=== PATIENT | male | born 1950 | race Caucasian/White ===

== ENCOUNTER → 2017-05-12 | Outpatient (CLI) | payer MEDICARE, OTHER ==
[~2017-05-12] MED LIST: ATOR40TA70 PO; CIPR-225 PO; HYDR-3874 PO; HYDR-3876 PO; LOSA25TA21 PO; NITR-65 PO; NITR-68 PO; SULF1TAB35 PO; TAMS0.4C98 PO
--- NOTE | 2017-05-12 13:53 | Diagnostic Imaging Report ---
KUB. INDICATION: Left flank pain. Left ureteric stone. FINDINGS: There is a 9-mm stone in the left flank at L3 level probably within the proximal left ureter. The right flank demonstrates no definite calcifications. There are calcifications superiorly and medially however on the left side of the abdomen at T12 level. This could be vascular or related to gallbladder stones potentially. No pelvic calcifications to suggest a stone. IMPRESSION: 1. A 9-mm left abdominal calcification at L3 level is presumably proximal left ureteric stone. 2. Indeterminate upper medial right abdominal calcifications also seen. Dictated by: Dictated on workstation # [id number]
== END ==
LOC: RAD 12:03
PROVIDERS: ATTEND Urology
DX: N20.1 Calculus of ureter; R93.8 Abnormal findings on diagnostic imaging of other specified body structures
CPT/HCPCS: 74000

== ENCOUNTER 2017-05-13 05:40 | Outpatient (CLI) | payer MEDICARE, OTHER ==
[~2017-05-13] VITALS: Ht 180.3 cm; Wt 108.9 kg
[2017-05-13] MEDS ORDERED: ATOR40TA70 PO (12:44)
[2017-05-13] MEDS ORDERED: SULF1TAB35 PO (12:44)
[2017-05-13] MEDS ORDERED: LOSA25TA21 PO (12:44)
[2017-05-14] MEDS ORDERED: TAMS0.4C98 PO (11:32)
[2017-05-14] MEDS ORDERED: NITR-68 PO (11:32)
[2017-05-14] MEDS ORDERED: HYDR-3876 PO (11:32)
== END 2017-05-13 12:44 ==
LOC: PREOP 05:40
PROVIDERS: ATTEND Urology
DX: Z01.818 Encounter for other preprocedural examination (principal); N20.1 Calculus of ureter

== ENCOUNTER 2017-05-14 07:36 | Day surgery (SDC) | payer MEDICARE, OTHER ==
[~2017-05-14] VITALS: Ht 180.3 cm; Wt 108.9 kg
[~2017-05-14 07:36] MED LIST changes: -CIPR-225 PO; -HYDR-3874 PO; -HYDR-3876 PO; -NITR-65 PO; -NITR-68 PO; -TAMS0.4C98 PO
[2017-05-14] MEDS ORDERED: CATHETER FLUSH 10 ML SYR IV PRN (08:00)
[2017-05-14] MEDS ORDERED: cefTRIAXone 1 GM/NS 50 ML IVPB IV ONE ×2 (08:00)
--- NOTE | 2017-05-14 08:02 | Progress Note-Pre Operative ---
Pre-Operative Progress Note H&P Reviewed The H&P was reviewed, patient examined and no changes noted. Date Seen by Provider: May 14, 2017 Time Seen by Provider: 08:01 Date H&P Reviewed: May 14, 2017 Time H&P Reviewed: 08:02 Pre-Operative Diagnosis: LT URETERAL STONE SHERRIE MCDOWELL MD May 14, 2017 8:02 am
--- NOTE | 2017-05-14 08:29 | Diagnostic Imaging Report ---
Supine view of the abdomen. INDICATION: Left-sided stone. FINDINGS: There is a 9-mm stone with comparison with 05/12/2017, has progressed minimally within the proximal left ureter, now at L3-L4 disc level. No other stones are evident on this radiograph. Moderate amount of fecal material in the colon and rectum seen. The surgical clips in the upper right abdomen could relate to cholecystectomy. IMPRESSION: A 9-mm left-sided stone at L3-L4 level could correlate with a proximal left ureter stone. Dictated by: Dictated on workstation # [id number]
[2017-05-14 08:30] VITALS: BP 137/88
[2017-05-14] MEDS: LACTATED RINGERS 1,000 ML IV PRN ×2 (08:35→09:49)
[2017-05-14] MEDS ORDERED: MIDAZOLAM 2 MG/2 ML (VERSED) VIAL ONE (09:01)
[2017-05-14] MEDS ORDERED: FUROSEMIDE 40 MG/4 ML INJ (LASIX) ONE (09:01)
[2017-05-14] MEDS ORDERED: LIDOCAINE PF 2% 5 ML (XYLOCAINE) VIAL ONE (09:01)
[2017-05-14] MEDS ORDERED: proPOfol 200 MG/20 ML (DIPRIVAN) VIAL IV ONE (09:01)
[2017-05-14] MEDS ORDERED: ONDANSETRON 4 MG/2 ML (SDV) Z0FRAN ONE (09:01)
[2017-05-14] MEDS ORDERED: SEVOFLURANE (ULTANE) 15 ML INHAL SOLN ONE ×3 (09:01→09:02)
[2017-05-14] MEDS ORDERED: fentaNYL INJECTION 100 MCG/2 ML AMP ONE (09:02)
[2017-05-14] MEDS ORDERED: LACTATED RINGERS 1,000 ML IV ONE ×2 (09:02→09:39)
--- NOTE | 2017-05-14 09:25 | Progress Note-Post Operative ---
Post-Operative Progess Note Surgeon (s)/Strategic Intelligence Officer (s) Surgeon SHERRIE MCDOWELL MD Strategic Intelligence Officer: N/A Pre-Operative Diagnosis LT URETERAL STONE Post-Operative Diagnosis SAME Procedure & Operative Findings Date of Procedure 05/14/17 Procedure Performed/Findings LT ESWL FOR LT PROXIMAL URETERAL STONE Anesthesia Type GENERAL Estimated Blood Loss Estimated blood loss (mL): N/A Specimens/Packing Specimens Removed N/A Packing: N/A SHERRIE MCDOWELL MD May 14, 2017 9:25 am
--- NOTE | 2017-05-14 09:27 | Discharge Inst-Urology ---
Discharge Inst-Urology Discharge Medications New, Converted, or Re-newed RX: RX on Chart Patient Instructions/Follow Up Plan Please make appointment to been seen in office Saturday 05/19 or Sunday 05/20. KUB prior to it KUB on way home Post ESWL instructions Increase oral fluids for 48 hours and then as needed. Diet and Activity as tolerated. If questions or concerns contact your physician Or seek help at emergency department. SHERRIE MCDOWELL MD May 14, 2017 9:27 am
[2017-05-14] MEDS ORDERED: morphine INJ 10 MG/ML 1ML (SYR OR VIAL) IVP PRN (10:00)
[2017-05-14] MEDS ORDERED: ONDANSETRON 4 MG/2 ML (SDV) Z0FRAN IVP PRN (10:00)
[2017-05-14 10:50] VITALS: BP 111/69
[2017-05-14 11:20] VITALS: BP 112/73
[2017-05-14] MEDS ORDERED: TAMS0.4C98 PO (11:32)
[2017-05-14] MEDS ORDERED: HYDR-3876 PO (11:32)
[2017-05-14] MEDS ORDERED: NITR-68 PO (11:32)
[2017-05-14 11:50] VITALS: BP 120/75
--- NOTE | 2017-05-14 13:08 | Diagnostic Imaging Report ---
Supine view of the abdomen. INDICATION: Post lithotripsy of left ureter stone. FINDINGS: There is a 9-mm proximal left ureter stone at L4 level with overall appearance similar to the prior study. There is slight internal density change suggested without gross fragmentation. IMPRESSION: A 9-mm proximal left ureter stone. Dictated by: Dictated on workstation # [id number]
--- NOTE | 2017-05-14 17:16 | OPERATIVE REPORT ---
PROCEDURE PHYSICIAN: SHERRIE MCDOWELL DATE OF PROCEDURE: 05/14/2017 PREOPERATIVE DIAGNOSIS: Left proximal ureteral stone. POSTOPERATIVE DIAGNOSIS: Left proximal ureteral stone. PROCEDURE PERFORMED: Left ESWL. SURGEON: Lm. ANESTHESIA: General. COMPLICATIONS: None. PROCEDURE: Under satisfactory general anesthesia, the patient supine position on the ESWL table, the left proximal ureteral stone was localized and shocks were delivered KV of 6. Total of 3000 shocks seemed to fragment the stone nicely. The patient received 30 mg of Toradol and 40 mg of Lasix at the end of the procedure IV. He tolerated the procedure and anesthesia well and was sent to recovery room in stable condition. Job ID: [id number] Dictated Date: 05/14/2017 09:36:38 Time Piece Repairer Date: 05/14/2017 17:11:53 / woo
== END 2017-05-14 12:00 | disposition home or self-care (01) ==
LOC: SDC 07:36
PROVIDERS: ATTEND Urology
DX: N20.1 Calculus of ureter (principal); Z11.2 Encounter for screening for other bacterial diseases; E78.5 Hyperlipidemia, unspecified; I10 Essential (primary) hypertension; Z79.899 Other long term (current) drug therapy
CPT/HCPCS: 74000; 87081

== ENCOUNTER → 2017-05-19 | Outpatient (CLI) | payer MEDICARE, OTHER ==
[~2017-05-19] MED LIST changes: +HYDR-3876 PO; +NITR-65 PO; +NITR-68 PO; +TAMS0.4C98 PO
--- NOTE | 2017-05-19 18:22 | Diagnostic Imaging Report ---
EXAMINATION: KUB. INDICATION: Left flank pain. FINDINGS: The previously seen left ureteric stone is now fragmented with the larger fragment measuring 6 mm at the L4 level. At the lower endplates of L4 in a more medial location, there is a calcification or fecalith seen. This is probably too medial to be within the ureter. The right flank and the pelvis demonstrate no suspicious calcifications. Surgical clips in the upper right abdomen seen. Moderate amount of fecal material are seen in the colon. IMPRESSION: Stone fragments up to 6 mm are seen at the level of L4 in the left ureter. Dictated by: Dictated on workstation # [id number]
== END ==
LOC: RAD 13:16
PROVIDERS: ATTEND Urology
DX: N20.1 Calculus of ureter (principal)
CPT/HCPCS: 74000

== ENCOUNTER 2017-05-20 09:02 | Outpatient (CLI) | payer MEDICARE, OTHER ==
[~2017-05-20] VITALS: Ht 180.3 cm; Wt 108.9 kg
[~2017-05-20 09:02] MED LIST changes: -NITR-65 PO
[2017-05-21] MEDS ORDERED: TAMS0.4C98 PO ×2 (09:23)
[2017-05-21] MEDS ORDERED: NITR-65 PO ×2 (09:23)
[2017-05-21] MEDS ORDERED: HYDR-3876 PO ×2 (09:23)
== END 2017-05-20 12:18 ==
LOC: PREOP 09:02
PROVIDERS: ATTEND Urology
DX: Z01.818 Encounter for other preprocedural examination (principal); N20.1 Calculus of ureter

== ENCOUNTER 2017-05-21 05:54 | Day surgery (SDC) | payer MEDICARE, OTHER ==
[~2017-05-21] VITALS: Ht 180.3 cm; Wt 108.9 kg
[2017-05-21] MEDS ORDERED: cefTRIAXone 1 GM (ROCEPHIN) VIAL ONE (06:12)
[2017-05-21] MEDS ORDERED: NS (IVPB) 50 ML ONE (06:12)
[2017-05-21] MEDS ORDERED: LACTATED RINGERS 1,000 ML IV PRN (06:28)
[2017-05-21 06:54] VITALS: BP 131/85
--- NOTE | 2017-05-21 07:03 | Progress Note-Pre Operative ---
Pre-Operative Progress Note H&P Reviewed The H&P was reviewed, patient examined and no changes noted. Date Seen by Provider: May 21, 2017 Time Seen by Provider: 07:02 Date H&P Reviewed: May 21, 2017 Time H&P Reviewed: 07:02 Pre-Operative Diagnosis: LT URETERAL STONE SHERRIE MCDOWELL MD May 21, 2017 7:03 am
[2017-05-21] MEDS ORDERED: MIDAZOLAM 2 MG/2 ML (VERSED) VIAL ONE (07:09)
[2017-05-21] MEDS ORDERED: DEXAMETHASONE PF 10 MG/ML (DECADRON) VIAL ONE (07:09)
[2017-05-21] MEDS ORDERED: proPOfol 200 MG/20 ML (DIPRIVAN) VIAL IV ONE (07:09)
[2017-05-21] MEDS ORDERED: ONDANSETRON 4 MG/2 ML (SDV) Z0FRAN ONE (07:09)
[2017-05-21] MEDS ORDERED: LIDOCAINE PF 2% 5 ML (XYLOCAINE) VIAL ONE (07:09)
[2017-05-21] MEDS ORDERED: fentaNYL INJECTION 100 MCG/2 ML AMP ONE (07:10)
[2017-05-21] MEDS ORDERED: LACTATED RINGERS 1,000 ML IV ONE (07:21)
[2017-05-21] MEDS ORDERED: FUROSEMIDE 40 MG/4 ML INJ (LASIX) ONE (07:21)
[2017-05-21] MEDS ORDERED: PHENYLEPHRINE 100 MCG/ML 10 ML (ANESTHESIA) SYR ONE (07:27)
[2017-05-21] MEDS ORDERED: CATHETER FLUSH 10 ML SYR IV PRN (07:30)
[2017-05-21] MEDS ORDERED: cefTRIAXone 1 GM/NS 50 ML IVPB IV ONE ×2 (07:30)
--- NOTE | 2017-05-21 07:37 | Progress Note-Post Operative ---
Post-Operative Progess Note Surgeon (s)/Directional Bore Operator (s) Surgeon SHERRIE MCDOWELL MD Directional Bore Operator: N/A Pre-Operative Diagnosis LT URETERAL STONE Post-Operative Diagnosis SAME Procedure & Operative Findings Date of Procedure 05/21/17 Procedure Performed/Findings LT ESWL FOR LT DISTAL URETERAL STONE Anesthesia Type GENERAL Estimated Blood Loss Estimated blood loss (mL): N/A Specimens/Packing Specimens Removed N/A Packing: N/A SHERRIE MCDOWELL MD May 21, 2017 7:37 am
--- NOTE | 2017-05-21 07:38 | Discharge Inst-Urology ---
Discharge Inst-Urology Discharge Medications New, Converted, or Re-newed RX: RX on Chart Patient Instructions/Follow Up Plan Please make appointment to been seen in office in 2 weeks. KUB prior to it KUB on way home Post ESWL instructions Increase oral fluids for 48 hours and then as needed. Diet and Activity as tolerated. If questions or concerns contact your physician Or seek help at emergency department. SHERRIE MCDOWELL MD May 21, 2017 7:38 am
--- NOTE | 2017-05-21 07:52 | Diagnostic Imaging Report ---
INDICATION: Lithotripsy KUB obtained at 653 hours and compared with 05/19/17 Compared to the prior study, the small calcifications which had been to the left of L4 are now visualized over the left side of pelvis, possibly distal ureter. No other suspicious calculi are visualized. There are surgical clips in right upper quadrant. Bowel gas pattern is unremarkable. IMPRESSION: A small calcification which had been to the left of L4 on the previous study are now overlying the left mid pelvis, possibly distal ureter. No other significant calculi are visualized. Bowel gas pattern is unremarkable. Dictated by: Dictated on workstation # [id number]
[2017-05-21 09:05] VITALS: BP 138/88
[2017-05-21] MEDS ORDERED: HYDR-3876 PO (09:23)
[2017-05-21] MEDS ORDERED: NITR-65 PO (09:23)
[2017-05-21] MEDS ORDERED: TAMS0.4C98 PO (09:23)
[2017-05-21 09:35] VITALS: BP 143/88
[2017-05-21 09:50] VITALS: BP 143/88
[2017-05-21 10:12] VITALS: BP 143/88
--- NOTE | 2017-05-21 10:22 | Diagnostic Imaging Report ---
INDICATION: Post ESWL COMPARISON: 05/21 COMPARISON: Radiograph of earlier the same day. This film is timed stamped 10:23 a.m.. Aggregate of stone fragments in the left pelvis projecting above the ischial spine lateral to the lower sacrum are again identified but slightly less dense and may be minimally decreased from the prior. No opaque stone disease projecting over the expected level of the kidneys. No evidence for right-sided ureteral stone. No adverse development. IMPRESSION: Aggregate of likely stone fragments distal left ureter are again identified although slightly less dense and conspicuous than on prior. The substantial change however is not clearly apparent on this radiograph. Not mentioned above some calcifications associated with the right adrenal gland unchanged. Dictated by: Dictated on workstation # [id number]
--- NOTE | 2017-05-21 10:33 | OPERATIVE REPORT ---
PROCEDURE PHYSICIAN: SHERRIE MCDOWELL DATE OF PROCEDURE: 05/21/2017 PREOPERATIVE DIAGNOIS: Left distal ureteral stones. POSTOPERATIVE DIAGNOSIS: Left distal ureteral stones. OPERATION: Left ESWL. SURGEON: Lm. ANESTHESIA: General. COMPLICATIONS: None. PROCEDURE: Under satisfactory general anesthesia, the patient in supine position on the ESWL table, the left distal ureteral stones were localized. Shocks were delivered at KV of 6. A total of 3000 shocks completely fragmented the stone The patient received 30 mg of Toradol and 40 mg of Lasix IV at the end of the procedure. He tolerated the procedure and anesthesia well and was sent to recovery room in stable condition. Job ID: [id number] Dictated Date: 05/21/2017 07:52:19 Fire Dispatcher Date: 05/21/2017 10:29:57 / lanette
== END 2017-05-21 10:12 | disposition home or self-care (01) ==
LOC: SDC 05:54
PROVIDERS: ATTEND Urology
DX: N20.1 Calculus of ureter (principal); Z11.2 Encounter for screening for other bacterial diseases; I10 Essential (primary) hypertension; E78.5 Hyperlipidemia, unspecified; Z79.899 Other long term (current) drug therapy
CPT/HCPCS: 74000; 87081

== ENCOUNTER → 2017-06-06 | Outpatient (CLI) | payer MEDICARE, OTHER ==
[~2017-06-06] MED LIST changes: +NITR-65 PO
--- NOTE | 2017-06-06 14:39 | Diagnostic Imaging Report ---
EXAM: Supine view of the abdomen. INDICATION: Stone. FINDINGS: There are 4 calcifications in the left side of the pelvis measuring up to 6 mm in size suspected to be stone fragments within the distal left ureter. No definitive other urinary tract stones seen. Surgical clips in the upper right abdomen is seen. IMPRESSION: Stone fragments up to 6 mm in size in the distal left ureter are seen. Dictated by: Dictated on workstation # [id number]
== END ==
LOC: RAD 08:41
PROVIDERS: ATTEND Urology
DX: N20.1 Calculus of ureter (principal)
CPT/HCPCS: 74000

== ENCOUNTER 2017-06-17 13:48 | Outpatient (CLI) | payer MEDICARE, OTHER ==
[~2017-06-17] VITALS: Ht 180.3 cm; Wt 110.2 kg
[~2017-06-17 13:48] MED LIST changes: -CIPR-225 PO; -HYDR-3874 PO
[2017-06-17 13:58] VITALS: BP 127/88
[2017-06-18] MEDS ORDERED: TAMS0.4C98 PO ×2 (09:31)
[2017-06-18] MEDS ORDERED: HYDR-3874 PO ×2 (09:31)
[2017-06-18] MEDS ORDERED: CIPR-225 PO ×2 (09:31)
== END 2017-06-17 14:05 | disposition home or self-care (01) ==
LOC: PREOP 13:48
PROVIDERS: ATTEND Urology
DX: Z01.818 Encounter for other preprocedural examination (principal); N20.1 Calculus of ureter
CPT/HCPCS: 87081

== ENCOUNTER → 2017-06-17 | Outpatient (CLI) | payer MEDICARE, OTHER ==
[~2017-06-17] MED LIST changes: +CIPR-225 PO; +HYDR-3874 PO
--- NOTE | 2017-06-17 13:49 | Diagnostic Imaging Report ---
EXAMINATION: Abdomen at 1:06 p.m. INDICATION: Ureteral stones on the left. FINDINGS: The previous abdomen exam of 06/06/2017 noted several ureteral calculi in the distal left ureter including a 6 mm calculus. Those calculi are again evident and do not seem to have changed significantly. No other pathological calcification is seen. The remainder of the abdomen and pelvis has not changed significantly since the prior exam. IMPRESSION: There continue to be several calculi in the distal left ureter. When compared to the previous study, there has been no significant change. Dictated by: Dictated on workstation # [id number]
== END ==
LOC: RAD 12:20
PROVIDERS: ATTEND Urology
DX: N20.1 Calculus of ureter (principal)
CPT/HCPCS: 74000

== ENCOUNTER 2017-06-18 06:00 | Day surgery (SDC) | payer MEDICARE, OTHER ==
[~2017-06-18] VITALS: Ht 180.3 cm; Wt 110.2 kg
[2017-06-18] MEDS ORDERED: LACTATED RINGERS 1,000 ML IV PRN (06:13)
[2017-06-18] MEDS ORDERED: cefTRIAXone 1 GM (ROCEPHIN) VIAL ONE (06:15)
[2017-06-18] MEDS ORDERED: NS (IVPB) 50 ML ONE (06:15)
[2017-06-18] MEDS ORDERED: fentaNYL INJECTION 100 MCG/2 ML AMP ONE (06:28)
[2017-06-18] MEDS ORDERED: proPOfol 200 MG/20 ML (DIPRIVAN) VIAL IV ONE (06:28)
[2017-06-18] MEDS ORDERED: LIDOCAINE PF 2% 5 ML (XYLOCAINE) VIAL ONE (06:28)
[2017-06-18] MEDS ORDERED: LACTATED RINGERS 1,000 ML IV ONE (06:28)
[2017-06-18] MEDS ORDERED: FUROSEMIDE 40 MG/4 ML INJ (LASIX) ONE (06:28)
[2017-06-18] MEDS ORDERED: SEVOFLURANE (ULTANE) 15 ML INHAL SOLN ONE ×2 (06:28→07:37)
[2017-06-18] MEDS ORDERED: DEXAMETHASONE PF 10 MG/ML (DECADRON) VIAL ONE (06:28)
[2017-06-18] MEDS ORDERED: MIDAZOLAM 2 MG/2 ML (VERSED) VIAL ONE (06:28)
[2017-06-18] MEDS ORDERED: ONDANSETRON 4 MG/2 ML (SDV) Z0FRAN ONE (06:28)
[2017-06-18 06:30] VITALS: BP 136/91
[2017-06-18] MEDS ORDERED: cefTRIAXone 1 GM/NS 50 ML IVPB IV ONE ×2 (06:45)
[2017-06-18] MEDS ORDERED: CATHETER FLUSH 10 ML SYR IV PRN (06:45)
--- NOTE | 2017-06-18 06:50 | Diagnostic Imaging Report ---
INDICATION: ESWL COMPARISON: 06/17/2017 FINDINGS: Two frontal supine views of the abdomen are obtained. Bowel gas pattern appears unremarkable with scattered colonic gas and stool. The faint small calcifications seen over the region of the distal left ureter are more faintly seen today but do appear to persist and appear similar to the recent prior study. No new urinary tract calcifications are suspected. There are mild degenerative changes in the spine. IMPRESSION: Several small faint calcifications left pelvis over the region of the distal left ureter are less well visualized today but appear similar to the recent prior exam. No significant new abnormality is demonstrated. Dictated by: Dictated on workstation # [id number]
--- NOTE | 2017-06-18 07:01 | Progress Note-Pre Operative ---
Pre-Operative Progress Note H&P Reviewed The H&P was reviewed, patient examined and no changes noted. Date Seen by Provider: Jun 18, 2017 Time Seen by Provider: 07:01 Date H&P Reviewed: Jun 18, 2017 Time H&P Reviewed: 07:01 Pre-Operative Diagnosis: LT DISTAL URETERAL STONES SHERRIE MCDOWLEL MD Jun 18, 2017 7:01 am
--- NOTE | 2017-06-18 08:09 | Progress Note-Post Operative ---
Post-Operative Progess Note Surgeon (s)/Ranger Aide (s) Surgeon SHERRIE MCDOWELL MD Ranger Aide: N/A Pre-Operative Diagnosis LT DISTAL URETERAL STONES Post-Operative Diagnosis SAME Procedure & Operative Findings Date of Procedure 06/18/17 Procedure Performed/Findings CYSTO, LT URETEROSCOPY WITH STONE LITHOTRIPSY Anesthesia Type GENERAL Estimated Blood Loss Estimated blood loss (mL): N/A Specimens/Packing Specimens Removed N/A Packing: N/A SHERRIE MCDOWELL MD Jun 18, 2017 8:09 am
--- NOTE | 2017-06-18 08:10 | Discharge Inst-Urology ---
Discharge Inst-Urology Discharge Medications New, Converted, or Re-newed RX: RX on Chart Patient Instructions/Follow Up Plan Please make appointment to been seen in office in 2 weeks. KUB prior to it KUB on way home Post Lithotripsy instructions Increase oral fluids for 48 hours and then as needed. Diet and Activity as tolerated. If questions or concerns contact your physician Or seek help at emergency department. SHERRIE MCDOWELL MD Jun 18, 2017 8:10 am
--- NOTE | 2017-06-18 08:48 | OPERATIVE REPORT ---
DATE OF SERVICE: 06/18/2017 PREOPERATIVE DIAGNOSIS: Left distal ureteral stone. POSTOPERATIVE DIAGNOSIS: Left distal ureteral stone. OPERATION PEFORMED: Cystoscopy with left ureteroscopy and lithotripsy. SURGEON: Harley Mcdowell MD. ANESTHESIA: General. COMPLICATIONS: None. PROCEDURE: Under satisfactory general anesthesia, the patient in lithotomy position, genitalia were prepped and draped in the usual sterile fashion. A 23-Mosotho cystoscope was introduced under direct vision. The anterior urethra was normal. The prostate revealed some mild enlargement with mild bladder neck obstruction. Bladder revealed some mild trabeculations. The ureteral orifices are normal in shape and size. Consideration was given efflux, very sluggish on the left side. Using the foreoblique lens, I dilated the left ureteral orifice intramural portion to the level of the stones, guided uteroscopically. I passed the 6.9-Mosotho semi-rigid urethroscope. I visualized the stone, mostly the big fragment of . I completely fragmented it with the LithoClast and fragmented any other fragments that deemed to be causing problem passing. The stones were very small fragments, some of them washed into the bladder. I removed the ureteroscope. There was no reason to put a stent. I reinserted the cystoscope to empty the bladder and patient tolerated the procedure and anesthesia well and was sent to recovery room in stable condition. Job ID: [id number] DocumentID: [id number] Dictated Date: 06/18/2017 08:13:32 Intelligence Senior Sergeant Date: 06/18/2017 08:48:06 Dictated By: HARLEY MCDOWELL MD [facility]
[2017-06-18 09:00] VITALS: BP 120/85
[2017-06-18 09:30] VITALS: BP 132/85
[2017-06-18] MEDS ORDERED: HYDR-3874 PO (09:31)
[2017-06-18] MEDS ORDERED: TAMS0.4C98 PO (09:31)
[2017-06-18] MEDS ORDERED: CIPR-225 PO (09:31)
[2017-06-18 10:00] VITALS: BP_SYST 132; BP_SYST 136; BP_DIAS 85; BP_DIAS 91
--- NOTE | 2017-06-18 11:23 | Diagnostic Imaging Report ---
Abdomen supine at 10:04 AM. INDICATION: Post ESWL. The prior exam performed earlier today noted faint calcific densities low in the pelvis on the left. Those calcifications are again evident on this study and do not seem to have changed significantly. There are also a few calcifications overlying the right upper quadrant just superior to the proximal right 12th rib. These are unchanged when compared to the prior exam as well. No other pathological calcifications are noted. IMPRESSION : The calcifications seen on the prior exam appear stable.. No new abnormality has developed. Dictated by: Dictated on workstation # [id number]
== END 2017-06-18 10:00 | disposition home or self-care (01) ==
LOC: SDC 06:00
PROVIDERS: ATTEND Urology
DX: N20.1 Calculus of ureter (principal); I10 Essential (primary) hypertension; E78.5 Hyperlipidemia, unspecified; Z79.899 Other long term (current) drug therapy
CPT/HCPCS: 74000

== ENCOUNTER → 2017-06-30 | Outpatient (CLI) | payer MEDICARE, OTHER ==
[~2017-06-30] MED LIST changes: +CIPR-225 PO; +HYDR-3874 PO
--- NOTE | 2017-06-30 14:29 | Diagnostic Imaging Report ---
INDICATION: Previous lithotripsy. COMPARISON: 06/18/2017. FINDINGS: Single frontal radiographic view of the abdomen was obtained and demonstrates punctate calcifications projecting over the inferior pole of the left renal shadow. Findings could be on the basis of nephrolithiasis. No other unexpected extraosseous calcifications or radiopaque foreign bodies are seen. Small bowel loops are nondistended. Bony structures show age-related degenerative changes. IMPRESSION: 1. Faint calcifications on the left suspicious for nephrolithiasis. 2. Nonobstructive small bowel gas pattern. Dictated by: Dictated on workstation # [id number]
== END ==
LOC: RAD 13:36
PROVIDERS: ATTEND Urology
DX: N20.1 Calculus of ureter (principal)
CPT/HCPCS: 74000